=== PATIENT | male | born 1980 | race Caucasian/White ===

== ENCOUNTER 2021-06-27 22:52 | Emergency (ER) | payer BC, SELFPAY ==
--- NOTE | ~2021-06-27 | XR_ITS ---
EXAMINATION: XR foot RT min 3V DATE: 06/27/2021 23:30 INDICATION: Right foot pain TECHNIQUE: Dorsoplantar, lateral, and 2 oblique views of the right foot were obtained. COMPARISON: None. FINDINGS: Bone alignment is normal. There is no fracture. There is dorsal soft tissue swelling of the foot. The joint spaces are normal. IMPRESSION: 1. Dorsal soft tissue swelling of the foot without acute osseous abnormality. Reviewed, dictated and finalized at location A.
[2021-06-27 23:02] VITALS: BP 148/96; PULSE 90; RESP 18; TEMP 36.8; O2SAT 98
--- NOTE | 2021-06-28 03:20 | ED.LOWEXIN ---
HPI - Extremity Injury (Lower) General Chief Complaint: Extremity Injury, Lower Stated Complaint: fall, right foot injury Time Seen by Provider: 06/28/21 03:10 Source: patient Mode of arrival: ambulatory Limitations: no limitations History of Present Illness HPI Narrative: This is a 40 year old male who presents for evaluation of right foot injury. He states he was walking in the dark when he accidentally stepped on his 's shoe. This cause his to injure his right foot. He has pain and swelling to his right lateral foot. He took ibuprofen prior to arrival , and he has been applying ice to his injury. He reports he doesn't feel much pain now. He denies ankle pain. He denies hitting his head or LOC. Related Data Allergies Allergy/AdvReac Type Severity Reaction Status Date / Time No Known Allergies Allergy Verified 06/27/21 23:07 Review of Systems Review of Systems: All systems reviewed & are unremarkable except as noted in HPI and below PMFSH Past Medical History Medical History (Updated 06/28/21 @ 03:22 by Therese Salas MD) No acute medical problems Social History Social History (Updated 06/28/21 @ 06:44 by Therese Salas MD) Smoking status: Never smoker Exam Const: General: no acute distress and alert Orientation/consciousness: patient oriented x3 Eyes: Pupils: Equal, round and reactive pupils present EOM: EOMs intact bilaterally Chest: Chest palpation & inspection: normal inspection of the chest Resp: Effort & Inspection: normal respiratory effort and no retractions Auscultation: clear to auscultation bilaterally Cardio: Rate: regular rate Rhythm: regular rhythm Heart sounds: no murmurs GI: GI Palp: Yes Soft to palpation, No Tenderness to palpation present (GI) and No Guarding due to palpation present (GI) Auscultation: normal bowel sounds Neuro: General: patient oriented x3, moves all extremities and CN's II-XI intact bilaterally Extrem: Other: right foot with mild swelling along lateral foot , no swelling or tenderness at ankle malleolous. He has full ROM minimal pain Psych: Mental Status: mental status grossly normal Affect: normal affect Course Reevaluation(s) Reevaluation #1: I reviewed xray with patient and family. No acute fractures found at this time. Date: 06/28/21 Time: 03:21 Vital Signs Vital signs: Vital Signs Temperature 98.2 F 06/27/21 23:02 Pulse Rate 90 06/27/21 23:02 Respiratory Rate 18 06/27/21 23:02 Blood Pressure 148/96 H 06/27/21 23:02 Pulse Oximetry 98 06/27/21 23:02 Temperature 98.2 F 06/27/21 23:02 Pulse Rate 90 06/27/21 23:02 Respiratory Rate 18 06/27/21 23:02 Blood Pressure 148/96 H 06/27/21 23:02 Pulse Oximetry 98 06/27/21 23:02 MDM - Extremity Injury (Lower) Imaging Data Radiologist's impression: ITS Impressions Foot X-Ray 06/27/21 23:32 IMPRESSION: 1. Dorsal soft tissue swelling of the foot without acute osseous abnormality. Discharge Plan Discharge Clinical Impression: Right foot sprain Qualifiers: Encounter type: initial encounter Qualified Code(s): S93.601A - Unspecified sprain of right foot, initial encounter Patient Disposition: Home, Self-Care Condition: Stable Instructions: Antibiotic Form, Foot Sprain (ED) Additional Instructions: Continue to take ibuprofen for your pain. Apply ice intermittently. If your pain has improved in 1 week follow up with your market director or primary care physician. Prescriptions: New ibuprofen 600 mg tablet 600 mg PO Q6H PRN (Reason: pain) Qty: 14 RF: 0 Follow-up/Referrals: Talib,MD Cameron [Primary Care Provider] -
== END 2021-06-28 03:35 | disposition home or self-care (01) ==
PROVIDERS: Emergency Provider General Practice; PCP Internal Medicine
DX: S93.601A Unspecified sprain of right foot, initial encounter (principal); W22.8XXA Striking against or struck by other objects, initial encounter
CPT/HCPCS: 73630; 99283